=== PATIENT | female | born 2005 | race Caucasian/White ===

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

== ENCOUNTER 2024-01-18 08:25 | Outpatient (CLI) | payer MEDICAID, SELFPAY ==
--- NOTE | 2024-01-18 08:30 | USR_ITS ---
PROCEDURE INFORMATION: Exam: US , Limited Exam date and time: 01/18/2024 8:41 AM Age: 18 years old Clinical indication: Screening exam; Routine US, uterus; Additional info: Anatomy US - in the next 1-2 weeks if possible LABS AND CLINICAL REPORTS: Gestational age (Established): 24 w 6 d Estimated due date (Established): 05/03/2024 TECHNIQUE: Imaging protocol: Real-time ultrasound of the maternal uterus with image documentation. Exam focused on the clinical indication. COMPARISON: US OB <=14 wk fetus w transvag 09/19/2023 9:54 AM FINDINGS: Gestation: Single live intrauterine gestation. heart rate: 147 bpm. presentation: Breech. Placenta: Posterior. ANATOMY: midline falx: Normal cerebellum: Normal lateral ventricles: Normal cisterna magna: Normal choroid plexus: Normal upper lip and nose: Normal. Unable to image profile view heart four-chamber view, heart size and position: Normal, limited right ventricular outflow tract: Normal, limited left ventricular outflow tract: Normal, limited kidneys: Normal stomach: Normal urinary bladder: Normal spine: Normal Umbilical cord insertion site into the abdomen: Normal Umbilical cord vessel number: Normal 3 vessel cord extremities: Normal. Normal external genitalia: Normal BIOMETRY: Gestational age (AUA): 24 weeks 5 days Estimated due date (AUA): 05/04/2024 Estimated weight: 724.59 g. EFW by AC, BPD, FL, HC, [place] 1985, 32.9% Biparietal diameter (BPD): 6.12 cm. EGA (BPD) is 24 w 6 d. 42.8 % percentile Head circumference (HC): 22.7 cm. EGA (HC) is 24 w 5 d. 24.7 % percentile Abdominal circumference (AC): 19.86 cm. EGA (AC) is 24 w 4 d. 30.2 % percentile Femur length (FL): 4.51 cm. EGA (FL) is 24 w 6 d. 37.8 % percentile Cephalic Index (CI): 77.18. (Normal range: 70 - 86) HC/AC: 1.14. (Normal range: 1.04 - 1.22) FL/HC: 19.87. (Normal range: 18.7 - 20.47) FL/BPD: 73.69. (Normal range: 71 - 87) FL/AC: 22.71. (Normal range: 20 - 24) MATERNAL: Cervix: Cervical length measures 4.7 cm. US/US OB >= 14 weeks fetus [id number] IMPRESSION: Single live intrauterine gestation with estimated age of 24 weeks 5 days and weight of 724.59 g.
== END 2024-01-18 08:26 | disposition home or self-care (01) ==
LOC: RAD 08:26
PROVIDERS: PCP Nurse Practitioner; Visit Provider Family Medicine
DX: Z34.00 Encounter for supervision of normal first pregnancy, unspecified trimester (principal)
CPT/HCPCS: 76805; 82950

== ENCOUNTER → 2024-02-14 10:57 | Outpatient (BNVA) | payer MEDICAID, SELFPAY | PROVIDERS: PCP Nurse Practitioner; Visit Provider Family Medicine | DX: Z51.81 Encounter for therapeutic drug level monitoring (principal); Z34.00 Encounter for supervision of normal first pregnancy, unspecified trimester | CPT/HCPCS: 85025 ==

== ENCOUNTER 2024-04-14 23:04 | Outpatient (CLI) | payer MEDICAID, SELFPAY ==
[2024-04-14 22:55] VITALS: BMI 32.8
[2024-04-14 23:10] VITALS: BP 118/72; PULSE 83
[2024-04-14 23:30] VITALS: BP 109/71; PULSE 75
[2024-04-14 23:32] VITALS: BP 112/58; PULSE 81
[2024-04-14 23:47] VITALS: BP 106/56; PULSE 71
[2024-04-15 00:01] VITALS: BP 108/57; PULSE 73
[2024-04-15 00:17] VITALS: BP 106/57; PULSE 70
[2024-04-15 00:24] LABS: Add Urine Microscopic? YES; Bilirubin Urine Neg (Negative); Blood Urine Neg (Negative); Glucose Urine UA Norm (Normal); Ketones Urine 1+ (Negative); Leukocyte Esterase Urine Negative (Negative); Nitrate Urine Negative (Negative); Protein Urine Neg (Negative); Specific Gravity, Urine 1.025 (1.005-1.030); Urine Appearance Slightly Cloudy (CLEAR); Urine Color Yellow (Yellow); Urobilinogen Urine 4 mg/dL (Negative); pH Urine 5 (5-7)
[2024-04-15 00:25] LABS: Bacteria Urine TRACE /hpf; Calcium Oxalate Crystals Urine 25-40 /hpf; Mucus Urine 2+ /hpf; WBC Urine 0-4 /hpf (0-5)
[2024-04-15 00:26] LABS: Add Urine Culture? No
[2024-04-15 00:32] VITALS: BP 95/51; PULSE 81
[2024-04-15 00:36] LABS: Basophils % 0.2 %; Eosinophils # 0.1 10^3/uL (0.0-0.8); Hematocrit 34.5 % (36-47); Lymphocytes # 2.4 10^3/uL (1.5-6.5); Lymphocytes % 20.1 %; Mean Corpuscular HGB Conc 34.5 g/dL (30-55); Mean Corpuscular Hemoglobin 29.8 pg (27-33); Mean Corpuscular Volume 86.5 fl (85-98); Mean Platelet Volume 9.7 fL (7.4-10.4); Monocytes # 0.7 10^3/uL (0.2-0.9); Monocytes % 5.7 %; Neutrophils # 8.82 10^3/uL (1.8-8.0); Neutrophils % 72.5 %; Nucleated Red Blood Cells % 0 %; Platelet Count 216 10^3/cmm (157-399); Red Blood Count 3.99 10^6/uL (3.85-5.65); White Blood Count 12.16 10^3/uL (4.5-13.0)
[2024-04-15 00:40] LABS: Urine Creatinine 187 mg/dL (28-217); Urine Protein Random 18 mg/dL
[2024-04-15 00:41] LABS: Alanine Aminotransferase 6 U/L (0-33); Albumin Level 3.4 g/dL (3.5-5.2); Alkaline Phosphatase 146 U/L (35-105); Anion Gap 15.6 (5-19); Aspartate Amino Transferase 10 U/L (0-32); Blood Urea Nitrogen 5 mg/dL (6-20); Calcium 9.2 mg/dL (8.5-10.5); Carbon Dioxide 18 mmol/L (22-29); Chloride 106 mmol/L (98-107); Creatinine Clr Calc Pharmacy 341.9437; Globulin 2.9 g/dL (1.3-4.6); Glomerular Filtration Rate 283.6 mL/min (90-130); Glucose 81 mg/dL (65-115); Osmolality Calculated 278 mOsm/kg (285-295); Potassium 3.6 mmol/L (3.5-5.1); Sodium 136 mmol/L (136-145); Total Bilirubin 0.3 mg/dL (0.15-1.2); Total Protein 6.3 g/dL (6.6-8.7)
[2024-04-15 00:42] VITALS: BP 104/56; PULSE 74
[2024-04-15 00:46] VITALS: BP 101/59; PULSE 78
== END 2024-04-15 01:05 | disposition home or self-care (01) ==
LOC: OPOB 23:06 → OBGYN 23:07
PROVIDERS: PCP Nurse Practitioner; Visit Provider Family Medicine
DX: O26.899 Other specified pregnancy related conditions, unspecified trimester (principal); Z3A.00 Weeks of gestation of pregnancy not specified; R60.0 Localized edema
CPT/HCPCS: 80053; 81001; 82570; 84156; 85025; 87081

== ENCOUNTER → 2025-02-04 10:41 | Outpatient (BNVA) | payer MEDICAID, SELFPAY | PROVIDERS: PCP Nurse Practitioner Family; Visit Provider Nurse Practitioner Family | DX: Z78.9 Other specified health status (principal) | CPT/HCPCS: 81025 ==